=== PATIENT | male | born 1975 | race Caucasian/White ===

== ENCOUNTER 2020-02-20 09:07 | Emergency (ER) | payer SELFPAY ==
[~2020-02-20] VITALS: Ht 177.8 cm; Wt 81.6 kg
[2020-02-20] MEDS ORDERED: CIPRODEX 0.3%-7.5 ML OT (09:38)
[2020-02-20] MEDS ORDERED: CIPRO500 MG PO (09:38)
== END 2020-02-20 09:58 | disposition home or self-care (01) ==
LOC: ED 09:07
DX: H60.93 Unspecified otitis externa, bilateral (principal); F17.200 Nicotine dependence, unspecified, uncomplicated